=== PATIENT | male | born 1990 | race Caucasian/White ===

== ENCOUNTER 2016-11-24 16:02 | Emergency (ER) | payer SELFPAY ==
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
[2016-11-24 18:47] VITALS: BP 132/70
--- NOTE | 2016-11-26 10:39 | CR ---
EXAM DATE: 11/24/16 PATIENT'S AGE: 26 Patient: DIANA MARTINEZ Facility: [place], [place] Site . Site : 1990 Study: XRay Shoulder Left [id number] 5:36:50 PM Ordering Physician: Doctor Dorman Final Report: Indication: Pain, injury. Findings: Soft tissue swelling overlies a nondisplaced avulsion of the left greater tuberosity. The glenohumeral joint is intact and no dislocation is identified. Bony mineralization is normal. Impression: Nondisplaced avulsion left greater tuberosity. Dictated by Za Reilly MD @ Nov 24 2016 5:41PM (Electronic Signature) Report Signed by Proxy and Original Signed Document filed in the Medical Record. MTDD
== END 2016-11-24 18:46 | disposition home or self-care (01) ==
LOC: MW.ED 16:02
DX: S42.255A Nondisplaced fracture of greater tuberosity of left humerus, initial encounter for closed fracture (principal); Z79.899 Other long term (current) drug therapy; W22.8XXA Striking against or struck by other objects, initial encounter
CPT/HCPCS: 73030-26-LT; 73030-LT; 99283

== ENCOUNTER → 2016-12-18 | Outpatient (CLI) | payer SELFPAY ==
--- NOTE | 2016-12-18 11:56 | CR ---
EXAMINATION: Left shoulder HISTORY: Fracture COMPARISON: 11/24/2016 TECHNIQUE: 3 views FINDINGS/IMPRESSION: There is a stable mildly displaced avulsion fracture of the greater tuberosity, unchanged in position and alignment. Remaining osseous structures and joint spaces appear intact. B one mineralization is otherwise normal.
== END ==
LOC: MW.CHORTHO 07:34
PROVIDERS: ATTEND Physician Assistant
DX: S42.253A Displaced fracture of greater tuberosity of unspecified humerus, initial encounter for closed fracture (principal)
CPT/HCPCS: 73030-26-LT; 73030-LT

== ENCOUNTER → 2017-01-08 | Outpatient (CLI) | payer SELFPAY ==
--- NOTE | 2017-01-08 13:42 | CR ---
EXAMINATION: Left shoulder HISTORY: Pain COMPARISON: 12/18/2016 TECHNIQUE: 3 views FINDINGS/IMPRESSION: There is a stable ossific density along the superior lateral aspect of the estela ral head, likely an avulsion fracture. The remaining osseous structures and joint spaces appear inta ct and unchanged. Bone mineralization is normal.
== END ==
LOC: MW.CHORTHO 07:25
PROVIDERS: ATTEND Physician Assistant
DX: M25.512 Pain in left shoulder (principal); S42.253A Displaced fracture of greater tuberosity of unspecified humerus, initial encounter for closed fracture
CPT/HCPCS: 73030-26-LT; 73030-LT

== ENCOUNTER 2020-05-05 17:40 | Emergency (ER) | payer BC, OTHER ==
--- NOTE | 2020-05-05 18:06 | EDM.PDOC ---
ED HPI GENERAL MEDICAL PROBLEM - General Chief Complaint: Respiratory Problem Stated Complaint: COVID, FEVER Time Seen by Provider: 05/05/20 17:42 Source of Information: Reports: Patient History Limitations: Reports: No Limitations - History of Present Illness INITIAL COMMENTS - FREE TEXT/NARRATIVE: HISTORY AND PHYSICAL: History of present illness: Patient is a 29-year-old male who presents to the emergency room with complaints of cough and sore throat. He states over the past 1 week he has progressively had a worsening cough. He tested positive for COVID-19 on 05/02/2020. He is requesting a chest x-ray as he feels he may need antibiotics, concerned he may have an infection. Patient denies any fever, chills, headache, change in vision, syncope or near syncope. Denies any chest pain, back pain, shortness of breath. Denies any abdominal pain, nausea, vomiting, diarrhea, constipation or dysuria. Has not noted any blood in urine or stool. Patient has been eating and drinking appropriately. Review of systems: As per history of present illness and below otherwise all systems reviewed and negative. Past medical history: As per history of present illness and as reviewed below otherwise noncontributory. Surgical history: As per history of present illness and as reviewed below otherwise noncontributory. Social history: See social history for further information Family history: As per history of present illness and as reviewed below otherwise noncontributory. Physical exam: General: Well developed and well nourished 29 year old male. Alert and orienta dalila x 3. Nontoxic in appearance and in no acute distress. Vital signs are stable and have been reviewed by me. Nursing notes were reviewed. HEENT: Atraumatic, normocephalic, pupils equal and reactive bilaterally, negative for conjunctival pallor or scleral icterus, mucous membranes moist, TMs normal bilaterally, throat clear, neck supple, nontender, trachea midline. No drooling or trismus noted. No meningeal signs. No hot potato voice noted. Lungs: Clear to auscultation, breath sounds equal bilaterally, chest nontender. Normal work of breathing, no accessory muscles used. Heart: S1S2, regular rate and rhythm without overt murmur Abdomen: Soft, nondistended, nontender. Negative for masses or hepatosplenomegaly. Negative for costovertebral tenderness. Pelvis: Stable nontender. Skin: Intact, warm, dry. No lesions or rashes noted. Hematologic: No petechiae or purpra. Mucosa appropriate color and normal nail bed color and refill. Extremities: Atraumatic, moves all extremities per self without difficulty or deficits, negative for cords or calf pain. Neurovascular unremarkable. Neuro: Awake, alert, oriented. Cranial nerves II through XII unremarkable. Cerebellum unremarkable. Motor and sensory unremarkable throughout. Exam nonfocal. Psychiatric: Mood and affect are appropriate. Normal thought process. Answering questions appropriately. Notes: The x-ray that was done does not have an optimal view. There is a small focal density in the right midlung which could be pneumonia. Due to the patient's COVID history and concern of the worsening cough I will put him on doxycycline. We have discussed today's findings in addition to providing specific details for plan of care. Reassessment at the time of disposition demonstrates that the patient is in no acute distress. The patient has remained stable throughout the entire ED visit and is without objective evidence for acute process requiring urgent intervention or hospitalization. The patient is stable for discharge, counseling was provided and we discussed in great detail signs and symptoms that would prompt them to return to the Emergency Department. Medication, follow up and supportive care measures were reviewed and discussed. Voices understanding and is agreeable to plan of care. Denies any further questions or concerns at this time. Diagnostics: CXR Therapeutics: None Prescription: Doxycycline Impression: COVID 19 associated pneumonia Plan: 1. Your x-ray shows concern for small localized infection, will give you a short course of antibiotic. COVID-19 is considered contagious. Your vital signs and oxygen saturation are well enough that you were able to monitor your symptoms at home. Continue to monitor for trouble breathing, new confusion or inability to arouse, bluish lips or face or any of the other symptoms we discussed -if this occurs please return to the emergency room. 2. Please self quarantine over the next 2 weeks. Inform any persons that you have been in contact with since you started becoming symptomatic that you have tested positive; they should be made aware and take the appropriate steps as needed. 3. You can take NyQuil during the evening to help get a restful night sleep. 4. You may alternate Tylenol and ibuprofen as needed for pain and fever management. 5. The [place] COVID 19 Hotline phone number , They are open Rusty - Saturday 7am - 7pm. Follow up with your primary care provider for re-evaluation and re-testing after the 2 week quarantine and discuss when you should be seen. Definitive disposition and diagnosis as appropriate pending reevaluation and review of above. - Related Data Allergies Allergy/AdvReac Type Severity Reaction Status Date / Time No Known Allergies Allergy Verified 05/05/20 18:03 Home Meds: Home Meds Levothyroxine Sodium [Euthyrox] 200 mcg PO DAILY 05/05/20 [History] Past Medical History Endocrine/Metabolic History: Reports: Hypothyroidism Social & Family History - Family History Family Medical History: Noncontributory ED ROS GENERAL - Review of Systems Review Of Systems: Comprehensive ROS is negative, except as noted in HPI. ED EXAM, GENERAL - Physical Exam Exam: See Below (See dictation) Course - Vital Signs Last Recorded V/S: Last Vital Signs Temp 98.4 F 05/05/20 18:05 Pulse 99 05/05/20 18:05 Resp 16 05/05/20 18:05 BP 106/82 05/05/20 18:05 Pulse Ox 95 05/05/20 18:18 Departure - Departure Time of Disposition: 19:07 Disposition: Home, Self-Care 01 Clinical Impression: Pneumonia due to COVID-19 virus - Discharge Information Instructions: COVID-19 Forms: ED Department Discharge Additional Instructions: The following information is given to patients seen in the emergency department who are being discharged to home. This information is to outline your options for follow-up care. We provide all patients seen in our emergency department with a follow-up referral. The need for follow-up, as well as the timing and circumstances, are variable depending upon the specifics of your emergency department visit. If you don't have a primary care physician on staff, we will provide you with a referral. We always advise you to contact your personal physician following an emergency department visit to inform them of the circumstance of the visit and for follow-up with them and/or the need for any referrals to a consulting specialist. The emergency department will also refer you to a specialist when appropriate. This referral assures that you have the opportunity for follow-up care with a specialist. All of these measure are taken in an effort to provide you with optimal care, which includes your follow-up. Under all circumstances we always encourage you to contact your private physician who remains a resource for coordinating your care. When calling for follow-up care, please make the office aware that this follow-up is from your recent emergency room visit. If for any reason you are refused follow-up, please contact the [facility] Emergency Department at and asked to speak to the emergency department charge nurse. [facility] [address] [address] [facility] [address] [place] [address] Thank you for choosing the [facility] emergency department in [place] for your medical needs today. It was a pleasure caring for you. Today you were seen in the emergency department for cough related to COVID-19. 1. Your x-ray shows concern for small localized infection, will give you a short course of antibiotic. COVID-19 is considered contagious. Your vital signs and oxygen saturation are well enough that you were able to monitor your symptoms at home. Continue to monitor for trouble breathing, new confusion or inability to arouse, bluish lips or face or any of the other symptoms we discuss ed -if this occurs please return to the emergency room. 2. Please self quarantine over the next 2 weeks. Inform any persons that you have been in contact with since you started becoming symptomatic that you have tested positive; they should be made aware and take the appropriate steps as needed. 3. You can take NyQuil during the evening to help get a restful night sleep. 4. You may alternate Tylenol and ibuprofen as needed for pain and fever management. 5. The [place] COVID 19 Hotline phone number , They are open Saturday - Saturday 7am - 7pm. Follow up with your primary care provider for re-evaluation and re-testing after the 2 week quarantine and discuss when you should be seen. Sepsis Event Note (ED) - Focused Exam Vital Signs: Vital Signs Temp Pulse Resp BP Pulse Ox 05/05/20 18:18 95 05/05/20 18:05 98.4 F 99 16 106/82 93 L
--- NOTE | 2020-05-05 18:59 | CR ---
Chest: Frontal view of the chest was obtained utilizing portable technique. Comparison: No prior chest imaging is available. Heart size and mediastinum are normal. Small focal parenchymal density is noted within the right midlung. Lungs otherwise are clear. Bony structures are unremarkable. Impression: 1. Small focal density within right midlung. Small area of pneumonia is possible. Recommend follow-up chest x-ray after clinical therapy is complete to make sure this disappears and does not represent other abnormality. 2. Chest x-ray is otherwise unremarkable. Diagnostic code #3 This report was dictated in MDT
[2020-05-05 20:13] VITALS: BP 110/68; PULSE 81
== END 2020-05-05 19:30 | disposition home or self-care (01) ==
LOC: MW.ED 17:40
DX: U07.1 COVID-19 (principal); J12.89 Other viral pneumonia; E03.9 Hypothyroidism, unspecified; Z79.899 Other long term (current) drug therapy
CPT/HCPCS: 71045; 71045-26; 99282; 99283-25